=== PATIENT | male | born 1990 | race Caucasian/White ===

== ENCOUNTER 2017-09-26 05:15 | Emergency (ER) | payer OTHER ==
--- NOTE | 2017-09-26 05:40 | ED Physician Documentation ---
PD HPI CHEST PAIN - Stated complaint Stated Complaint: CHEST PAIN - Chief complaint Chief Complaint: Cardiac - History obtained from History obtained from: Patient - History of Present Illness Timing - onset: Yesterday Timing - onset during: Rest Timing - details: Abrupt onset, Still present Quality: Sharp, Stabbing Location: Left chest Associated symptoms: No: Shortness of air, Diaphoresis, Nausea, Vomiting, Feeling faint / dizzy Similar symptoms before: Has not had sx before Recently seen: Not recently seen - Additional information Additional information: Patient is a 27 year old male with no significant past medical history who is presenting to the emergency department for chest pain. Patient states that the pain started yesterday and it was sharp in nature. Patient denies any aggravating or alleviating factors and states nathalie tit is non radiating. Review of Systems Constitutional: denies: Fever, Chills Eyes: denies: Decreased vision Ears: reports: Reviewed and negative Nose: reports: Reviewed and negative Throat: reports: Reviewed and negative Cardiac: reports: Chest pain / pressure. denies: Pedal edema, Calf pain Respiratory: denies: Dyspnea, Cough, Wheezing GI: denies: Nausea, Vomiting : reports: Reviewed and negative Skin: denies: Rash, Lesions Musculoskeletal: denies: Back pain, Extremity pain Neurologic: denies: Headache, Head injury Psychiatric: reports: Reviewed and negative Immunocompromised: denies: Immunocompromised PD PAST MEDICAL HISTORY - Past Medical History Past Medical History: Yes Cardiovascular: None Respiratory: None Neuro: None Endocrine/Autoimmune: None GI: None : None HEENT: None Psych: None Musculoskeletal: Chronic back pain Derm: None - Past Surgical History Past Surgical History: Yes Ortho: Other - Present Medications Home Medications: Ambulatory Orders Medication Instructions Recorded Confirmed Cyclobenzaprine [Flexeril] 10 mg PO TID PRN #20 tablet 06/20/15 Hydrocodone/Acetaminophen 1 - 2 each PO Q6H PRN #14 tablet 06/20/15 [Hydrocodon-Acetaminophen 5-325] Naproxen [Naprosyn] 500 mg PO BID PRN 06/20/15 06/20/15 - Allergies Allergies/Adverse Reactions: Allergies Allergy/AdvReac Type Severity Reaction Status Date / Time No Known Drug Allergies Allergy Verified 09/26/17 05:24 - Social History Does the pt smoke?: No Smoking Status: Never smoker Does the pt drink ETOH?: No Does the pt have substance abuse?: No - Immunizations Immunizations are current?: Yes - POLST Patient has POLST: No PD ED PE NORMAL - Vitals Vital signs reviewed: Yes - General General: Alert and oriented X 3, No acute distress, Well developed/nourished - HEENT HEENT: Atraumatic, PERRL, Pharynx benign - Neck Neck: Supple, no meningeal sign, No JVD - Cardiac Cardiac: RRR, No murmur, No rub - Respiratory Respiratory: No respiratory distress, Clear bilaterally - Abdomen Abdomen: Soft, Non tender, Non distended - Derm Derm: Normal color, Warm and dry, No rash - Extremities Extremities: No deformity, No edema, No calf tenderness / cord - Neuro Neuro: Alert and oriented X 3, No motor deficit, No sensory deficit, Normal speech - Psych Psych: Normal mood Results - Vitals Vitals: Vital Signs - 24 hr 09/26/17 09/26/17 05:22 05:35 Temperature 36.5 C Heart Rate 63 62 Respiratory 17 14 Rate Blood Pressure 146/82 H 140/77 H O2 Saturation 100 100 Oxygen O2 Source Room air - EKG (time done) 0529 Rate: Rate (enter#) (61) Rhythm: NSR [place]: Normal Intervals: Normal MT QRS: Normal Ischemia: Normal ST segments Compare to prior EKG: Old EKG unavailable - Labs Labs: Laboratory Tests 09/26/17 05:30 Troponin I < 0.04 - Rads (name of study) chest x-ray Radiology: Final report received (no acute disease process) PD MEDICAL DECISION MAKING - ED course Complexity details: reviewed old records, reviewed results, re-evaluated patient , considered differential, d/w patient ED course: Patient was seen and examined at bedside. EKG was performed and was within normal limits. Patient's diagnostics were all within normal limits. Patient had negative PERC and HEART scores and was appropriate for discharge with outpatient follow up up. Departure - Departure Disposition: 01 Home, Self Care Clinical Impression: Atypical chest pain Condition: Good Instructions: ED Chest Pain NonCardiac Follow-Up: primary,care provider [Other] - Within 3 Days Comments: Your diagnostics today were within normal limits. You pain is unlikely cardiac in nature. It is more likely to be musculoskeletal. You should alternate between ibuprofen (600mg) and tylenol (1000mg) as needed for pain. You should follow up with your base doctor. You may return to the emergency department at any time if needed for new, worsening or uncontrollable symptoms. Forms: Activity restrictions
--- NOTE | 2017-09-26 06:00 | XRAY Preliminary Report ---
Exam: XR CHEST 1 VIEW IMPRESSION: 1. No acute abnormality seen in the chest. [facility] SITE ID: [id number]
--- NOTE | 2017-09-26 06:03 | XRAY Report ---
EXAM: CHEST RADIOGRAPHY EXAM DATE: 09/26/2017 05:54 AM. CLINICAL HISTORY: Chest pain. COMPARISON: None. TECHNIQUE: 1 view. FINDINGS: Lungs/Pleura: No alveolar consolidation or pleural effusion. No pneumothorax. Mediastinum: Within exam limitations, the cardiomediastinal contour is normal. Other: None. IMPRESSION: 1. No acute abnormality seen in the chest. [facility] Referring Provider Line: [phone] SITE ID: [id number]
[2017-09-26 06:36] VITALS: BP 121/80
== END 2017-09-26 06:25 | disposition home or self-care (01) ==
LOC: ED 05:15
DX: R07.89 Other chest pain (principal)
CPT/HCPCS: 36415; 71010; 84484; 93005; 99283; 99284